=== PATIENT | male | born 1975 | race Caucasian/White ===

== ENCOUNTER → 2016-12-29 | Outpatient (CLI) | payer BC ==
[~2016-12-29] MED LIST: NO MEDICATIONS; VOLTAREN75 MG PO; ZYLOPRIM100 MG
[2016-12-29 15:36] LABS: HEMATOCRIT 46.1 % (38.0-50.0); HEMOGLOBIN 15.7 gm/dL (13.0-16.0); MEAN CELL VOLUME 87.7 FL (83-96); MEAN CORPUSCULAR HGB CONC 34.1 g/dL (30-36); MEAN PLATELET VOLUME 8.3 FL (6.5-11.5); RED BLOOD COUNT 5.25 X10e (3.90-5.60); RED CELL DISTRIBUTION WIDTH 13.3 % (11.0-15.5); WHITE BLOOD COUNT 5.5 X10e3 (4.0-10.5)
[2016-12-29 16:09] LABS: BUN/CREATININE RATIO 11.25; CALCIUM SERUM 9.5 mg/dL (8.4-10.2); CREATININE SERUM 0.8 mg/dL (0.6-1.4); GLOM FILT RATE Estimated 109.5 mL/min (>60); POTASSIUM 3.6 mmol/L (3.5-5.1)
== END | disposition home or self-care (01) ==
LOC: CAMB 14:39
PROVIDERS: Surgery
DX: Z01.812 Encounter for preprocedural laboratory examination (principal); K43.9 Ventral hernia without obstruction or gangrene
CPT/HCPCS: 36415; 80048; 85027

== ENCOUNTER → 2017-01-04 | Day surgery (SDC) | payer BC ==
--- NOTE | ~2017-01-04 | OR ---
Unit #: [id number] #: [id number] Patient: APRIL PEDRAZA [id number] [address] [place], [place] [address] [id number] O MR#: [id number] NAME: APRIL PEDRAZA ROOM: Date of Procedure: 01/04/2017 Admission Date: 01/04/2017 Surgeon: Ramsey Chapa M.D. : 1975 Attending Physician: Ramsey Chapa M.D. Primary Care Physician: Bakari Pham M.D. OPERATIVE REPORT PREOPERATIVE DIAGNOSIS Incarcerated incisional hernia. POSTOPERATIVE DIAGNOSIS Complex incarcerated incisional hernia measuring 20 cm x 8 cm. PROCEDURE PERFORMED Laparoscopic ventral hernia repair of incarcerated incisional hernia with 8 x 10 Ventralight mesh. RN DIABETES EDUCATOR Davis Cid M.D. ANESTHESIA General endotracheal anesthesia. ESTIMATED BLOOD LOSS Minimal. IV FLUIDS 800 crystalloid. COMPLICATIONS None. INDICATIONS FOR PROCEDURE The patient is a 41-year-old gentleman, who presents with ventral hernia. DESCRIPTION OF PROCEDURE The patient was taken to the operating theater and placed in a supine position. General anesthesia was induced. His abdomen was prepped and draped. A 5-mm Optiview trocar was placed in the left upper quadrant without difficulty. The abdomen was insufflated to 15 mmHg with CO2. I then placed a left lower quadrant 10 mm, right upper quadrant 5 mm. The patient was found to have a complex hernia. This was reduced with a combination of sharp and blunt dissection. There were multiple defect. I then placed an 8 x 10 Ventralight mesh. This was held in place with single-stranded Vicryl suture and delivered transcutaneous. I then secured with SorbaFix Tacker with 2 circumferential rows of tacks. This covered the defect by at least 5 cm. I then noticed some hemorrhage from our dissection in the omentum. I found a small bleeding vessel and an Endoloop was placed around this. I then irrigated and hemostasis was Unit #: [id number] #: [id number] Patient: APRIL PEDRAZA adequate. I removed the ports under direct vision and closed with 4-0 Vicryl. The sutures were cut at skin level. The patient tolerated the procedure well and sent to recovery room in good condition. Dictated by... Umesh Snyder/diego TD: 01/04/2017 23:42 JOB #: [id number] OPERATIVE REPORT Page 1 of 1 X Ramsey Chapa MD X PROCEDURE OPERATIVE NOTE
== END | disposition home or self-care (01) ==
LOC: CSUR 08:55
DX: K43.0 Incisional hernia with obstruction, without gangrene (principal); Z91.013 Allergy to seafood; Z91.041 Radiographic dye allergy status; Z98.890 Other specified postprocedural states; Z82.49 Family history of ischemic heart disease and other diseases of the circulatory system; Z80.3 Family history of malignant neoplasm of breast
CPT/HCPCS: C1781; J0330; J0690; J1100; J1170; J1644; J2250; J2405; J3010